=== PATIENT | male | born 2000 | race Caucasian/White ===

== ENCOUNTER 2019-01-28 12:41 | Inpatient (IN) | payer MEDICAID ==
[~2019-01-28] VITALS: Ht 170.2 cm; Wt 54.0 kg
[2019-01-28] MEDS ORDERED: IOHEXOL 300MG/ML 150 ML BTL ONE ×2 (17:01→19:12)
[2019-01-28] MEDS ORDERED: SOD CHLORIDE 0.9% 100 ML ONE (17:01)
[2019-01-28] MEDS ORDERED: PIPER-TAZO 3.375 GM IV (PMX) 100 ML IVPB ONE (17:30)
[2019-01-28] MEDS ORDERED: DIATR MEGLU/DIATRIZOATE SODIUM 30 ML SOLUTION PO ONE (18:30)
[2019-01-28] MEDS ORDERED: ACETAMINOPHEN 325 MG TAB PO PRN (18:30)
[2019-01-28] MEDS ORDERED: morphine 2 MG INJ IV PRN (18:30)
[2019-01-28] MEDS ORDERED: NACL 0.9% 3 ML SYG IV SCH (18:30)
[2019-01-28] MEDS ORDERED: BISACODYL 10 MG SUPP PR PRN (18:30)
[2019-01-28] MEDS ORDERED: BISACODYL (EC) 5 MG TAB PO PRN (18:30)
[2019-01-28] MEDS ORDERED: ONDANSETRON 4 MG INJ IV PRN ×2 (18:30)
[2019-01-28] MEDS ORDERED: ACETAMINOPHEN 650 MG SUPP PR PRN (18:30)
[2019-01-28] MEDS: FAMOTIDINE 20 MG INJ IV SCH (21:00)
[2019-01-28 22:30] VITALS: BP 121/57; PULSE 60; RESP 16
[2019-01-28] MEDS: DEXTROSE 5%-0.45% NACL 1,000 ML IV SCH (23:18)
[2019-01-28 23:38] VITALS: Ht 170.2 cm; Wt 54.0 kg
[2019-01-29] MEDS ORDERED: morphine 2 MG INJ IV PRN
[2019-01-29 02:08] VITALS: BP 103/61; PULSE 63; RESP 18
[2019-01-29 07:13] VITALS: BP 105/55; PULSE 50; RESP 18
[2019-01-29] MEDS: FAMOTIDINE 20 MG INJ IV SCH ×2 (08:09→21:43)
[2019-01-29] MEDS: DEXTROSE 5%-0.45% NACL 1,000 ML IV SCH ×2 (14:14→19:02)
[2019-01-29 14:15] VITALS: BP 105/57; PULSE 65; RESP 20
[2019-01-29 20:07] VITALS: BP 108/69; PULSE 72; RESP 18
[2019-01-30 02:52] VITALS: BP 108/59; PULSE 62; RESP 18
[2019-01-30 07:37] VITALS: BP 114/56; PULSE 76; RESP 18
[2019-01-30] MEDS: FAMOTIDINE 20 MG INJ IV SCH (09:11)
== END 2019-01-30 13:15 | disposition home or self-care (01) | DRG 201 ==
LOC: FTE 12:41 → 2NE 18:12
PROVIDERS: ADMIT Internal Medicine; ATTEND Internal Medicine
DX: J98.2 Interstitial emphysema (principal); Y92.9 Unspecified place or not applicable; F12.10 Cannabis abuse, uncomplicated; S20.219A Contusion of unspecified front wall of thorax, initial encounter; V49.49XA Driver injured in collision with other motor vehicles in traffic accident, initial encounter
CPT/HCPCS: 36415; 70450; 71250; 71260; 72040; 72125; 74177; 74230; 80048; 80053; 80307; 83036; 83735; 84100; 84443; 85025; 85610; 85730; 93005; 96374; J2270; J2543; J7042; Q9967